=== PATIENT | male | born 2000 | race Caucasian/White ===

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

== ENCOUNTER → 2020-06-05 | Outpatient (REF) | payer OTHER ==
[~2020-06-05] MED LIST: DIPH25CA32 PO; ELIM5CRE2 TOP
== END ==
LOC: M SFHCADAM 13:23
PROVIDERS: ATTEND Family Medicine
DX: R19.7 Diarrhea, unspecified (principal)

== ENCOUNTER → 2020-06-07 | Outpatient (REF) | payer OTHER ==
[2020-06-07 17:15] LABS: BASO # 0.1 10^3/uL (0.0-0.2); EOS # 0.1 10^3/uL (0.0-0.5); EOS % 0.7 % (0.0-3.0); HEMATOCRIT 46.2 % (42.0-52.0); HEMOGLOBIN 15.7 g/dl (13.5-17.5); LYMPH # 2.5 10^3/uL (1.5-5.0); LYMPH % 28.5 % (24.0-44.0); MEAN CORPUSCULAR HEMOGLOBIN 29.7 pg (27.0-33.0); MEAN CORPUSCULAR VOLUME 87.5 fl (80.0-96.0); MONO # 0.5 10^3/uL (0.0-0.8); MONO % 6.2 % (0.0-5.0); NEUTROPHILS # 5.5 10^3/uL (1.5-8.5); NEUTROPHILS % 63.5 % (36.0-66.0); PLATELET COUNT, AUTOMATED 344 10^3/uL (150-450); RED BLOOD COUNT 5.28 10^6/uL (4.30-6.10); WHITE BLOOD COUNT 8.7 10^3/uL (4.0-10.0)
[2020-06-07 17:22] LABS: FREE T4 1.25 NG/DL (0.76-1.46); THYROID STIMULATING HORMONE 0.962 uIU/ML (0.358-3.740)
[2020-06-07 17:22] LABS: ALBUMIN 4.5 GM/DL (3.2-5.2); ALT/SGPT 25 U/L (12-78); BILIRUBIN,TOTAL 0.5 MG/DL (0.2-1.0); BLOOD UREA NITROGEN 10 MG/DL (7-18); CALCIUM LEVEL 10.2 MG/DL (8.5-10.1); CARBON DIOXIDE LEVEL 29 MEQ/L (21-32); CHLORIDE LEVEL 103 MEQ/L (98-107); CREATININE FOR GFR 0.99 MG/DL (0.70-1.30); GLOMERULAR FILTRATION RATE > 60.0 (>60); GLUCOSE, FASTING 125 MG/DL (70-100); POTASSIUM SERUM 4.3 MEQ/L (3.5-5.1); SODIUM LEVEL 139 MEQ/L (136-145); TOTAL PROTEIN 7.6 GM/DL (6.4-8.2)
== END ==
LOC: M SFHCADAM 13:29
PROVIDERS: ATTEND Family Medicine
DX: Z00.00 Encounter for general adult medical examination without abnormal findings (principal)

== ENCOUNTER 2020-09-28 20:41 | Emergency (ER) | payer OTHER ==
[~2020-09-28] VITALS: Ht 175.3 cm; Wt 80.4 kg
[2020-09-28] MEDS ORDERED: KETOROLAC 30 MG/ML 1ML VIAL IV ONE (23:30)
[2020-09-28] MEDS: ALBUTEROL 90 MCG/ACT 8GM HFA INHALER INH SCH (23:52)
[2020-09-29] MEDS: ALBUTEROL 90 MCG/ACT 8GM HFA INHALER INH SCH ×2 (00:06→00:26)
[2020-09-29 00:07] LABS: VENOUS BASE EXCESS -1.9 (-2.0-2.0); VENOUS HCO3 22.1 MEQ/L (23.0-27.0); VENOUS O2 SATURATION 65.2 % (60.0-80.0); VENOUS PARTIAL PRESSURE CO2 36.1 mmHg (38.0-50.0); VENOUS PH 7.405 UNITS (7.330-7.430); VENOUS TOTAL CO2 23.2 MEQ/L (24.0-28.0)
[2020-09-29 00:17] LABS: INR 0.96
[2020-09-29 00:20] LABS: D-DIMER QUANT < 270 ng/ml (<500)
[2020-09-29 00:30] LABS: BASO # 0.1 10^3/uL (0.0-0.2); BASO % 0.6 % (0.0-1.0); EOS % 0.2 % (0.0-3.0); HEMATOCRIT 45.1 % (42.0-52.0); HEMOGLOBIN 15.6 g/dl (13.5-17.5); LYMPH # 2.9 10^3/uL (1.5-5.0); LYMPH % 23.1 % (24.0-44.0); MEAN CORPUSCULAR HEMOGLOBIN 29.5 pg (27.0-33.0); MEAN CORPUSCULAR HGB CONC 34.6 g/dl (32.0-36.5); MEAN CORPUSCULAR VOLUME 85.4 fl (80.0-96.0); MONO # 0.9 10^3/uL (0.0-0.8); MONO % 7.5 % (2.0-8.0); NEUTROPHILS # 8.5 10^3/uL (1.5-8.5); NEUTROPHILS % 68.1 % (36.0-66.0); PLATELET COUNT, AUTOMATED 349 10^3/uL (150-450); RED BLOOD COUNT 5.28 10^6/uL (4.30-6.10); WHITE BLOOD COUNT 12.4 10^3/uL (4.0-10.0)
--- NOTE | 2020-09-29 00:42 | REPVR ---
PROCEDURE INFORMATION: Exam: XR Chest Exam date and time: 09/28/2020 11:57 PM Age: 20 years old Clinical indication: Other: Dyspnea/cough TECHNIQUE: Imaging protocol: XR of the chest. Views: 1 view. COMPARISON: CR Chest, 2 view PA, Lat 01/10/2014 1:01 PM FINDINGS: Lungs: Unremarkable. No consolidation. Pleural spaces: Unremarkable. No pleural effusion. No pneumothorax. Heart/Mediastinum: Unremarkable. No cardiomegaly. Bones/joints: Unremarkable. IMPRESSION: No acute findings. Electronically signed by: Timo Lott On 09/29/2020 00:42:36 AM
[2020-09-29 00:43] LABS: ALBUMIN 4.5 GM/DL (3.2-5.2); ALT/SGPT 23 U/L (12-78); BILIRUBIN,DIRECT 0.2 MG/DL (0.0-0.2); BLOOD UREA NITROGEN 11 MG/DL (7-18); CALCIUM LEVEL 9.6 MG/DL (8.5-10.1); CARBON DIOXIDE LEVEL 24 MEQ/L (21-32); CHLORIDE LEVEL 106 MEQ/L (98-107); CK-MB VALUE MASS < 1.0 NG/ML (<3.6); CPK CREATINE PHOSPHOKINASE 140 U/L (39-308); CREATININE FOR GFR 0.92 MG/DL (0.70-1.30); GLOMERULAR FILTRATION RATE > 60.0 (>60); GLUCOSE, FASTING 80 MG/DL (70-100); MB/CK RELATIVE INDEX 0.71 (< OR =4); POTASSIUM SERUM 3.6 MEQ/L (3.5-5.1); SODIUM LEVEL 142 MEQ/L (136-145); THYROXINE (T4) 12.7 UG/DL (4.5-12.0); TROPONIN I < 0.02 NG/ML (< 0.10)
[2020-09-29] MEDS ORDERED: PROAAER10 INH (01:33)
[2020-09-29] MEDS ORDERED: NAPR-837 PO (01:33)
[2020-09-29] MEDS ORDERED: methylPREDNISolone 125MG 2ML VIAL IV ONE (01:35)
[2020-09-29 01:45] VITALS: BP 147/67
--- NOTE | 2020-09-30 08:45 | ECGEPIP ---
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
== END 2020-09-29 01:46 | disposition home or self-care (01) ==
LOC: M ED 20:41
DX: R07.89 Other chest pain (principal); R06.00 Dyspnea, unspecified; J45.909 Unspecified asthma, uncomplicated; F17.200 Nicotine dependence, unspecified, uncomplicated; Z88.1 Allergy status to other antibiotic agents; Z79.51 Long term (current) use of inhaled steroids
CPT/HCPCS: 71045; 80047; 80048; 80076; 82550; 82553; 82803; 84436; 84443; 85025; 85379; 85610; 93005; 93041; 94640; 94760; 96374; 96375; 99284; J1885; J2930

== ENCOUNTER 2022-05-11 17:52 | Emergency (ER) | payer OTHER ==
[~2022-05-11] VITALS: Ht 175.3 cm; Wt 93.3 kg
[~2022-05-11 17:52] MED LIST changes: +DIPH-435 PO; -DIPH25CA32 PO; +NAPR-837 PO; +PROAAER10 INH
[2022-05-11 19:59] LABS: BASO # 0.1 10^3/uL (0.0-0.2); BASO % 0.7 % (0.0-1.0); EOS # 0.1 10^3/uL (0.0-0.5); EOS % 0.7 % (0.0-3.0); HEMATOCRIT 43.5 % (42.0-52.0); HEMOGLOBIN 14.7 g/dl (13.5-17.5); LYMPH # 2.5 10^3/uL (1.5-5.0); LYMPH % 20.6 % (24.0-44.0); MEAN CORPUSCULAR HEMOGLOBIN 28.9 pg (27.0-33.0); MEAN CORPUSCULAR HGB CONC 33.8 g/dl (32.0-36.5); MEAN CORPUSCULAR VOLUME 85.5 fl (80.0-96.0); MONO % 8.6 % (2.0-8.0); NEUTROPHILS # 8.4 10^3/uL (1.5-8.5); PLATELET COUNT, AUTOMATED 336 10^3/uL (150-450); RED BLOOD COUNT 5.09 10^6/uL (4.30-6.10); WHITE BLOOD COUNT 12.1 10^3/uL (4.0-10.0)
[2022-05-11 20:15] VITALS: BP 130/78
[2022-05-11 20:24] LABS: ALBUMIN 4.3 G/DL (3.2-5.2); BILIRUBIN,DIRECT 0.2 MG/DL (<0.4); BILIRUBIN,TOTAL 0.5 MG/DL (0.3-1.2); TOTAL PROTEIN 7.2 G/DL (5.7-8.2)
[2022-05-11 20:26] LABS: FREE T4 1.4 NG/DL (0.89-1.76); THYROID STIMULATING HORMONE 0.829 uIU/ML (0.55-4.78)
== END 2022-05-11 20:57 | disposition home or self-care (01) ==
LOC: M ED 18:23
DX: R20.2 Paresthesia of skin (principal); I10 Essential (primary) hypertension; D72.829 Elevated white blood cell count, unspecified; I48.91 Unspecified atrial fibrillation; J45.909 Unspecified asthma, uncomplicated; G43.909 Migraine, unspecified, not intractable, without status migrainosus; F17.200 Nicotine dependence, unspecified, uncomplicated; F12.10 Cannabis abuse, uncomplicated; F10.10 Alcohol abuse, uncomplicated; Z88.0 Allergy status to penicillin; Z79.51 Long term (current) use of inhaled steroids; Z79.899 Other long term (current) drug therapy

== ENCOUNTER → 2022-05-21 | Outpatient (REF) | payer OTHER ==
[2022-05-21 13:41] LABS: BASO # 0.1 10^3/uL (0.0-0.2); BASO % 0.8 % (0.0-1.0); EOS # 0.1 10^3/uL (0.0-0.5); EOS % 1.3 % (0.0-3.0); HEMATOCRIT 48.2 % (42.0-52.0); HEMOGLOBIN 15.8 g/dl (13.5-17.5); LYMPH # 2.8 10^3/uL (1.5-5.0); LYMPH % 28.5 % (24.0-44.0); MEAN CORPUSCULAR HEMOGLOBIN 28.7 pg (27.0-33.0); MEAN CORPUSCULAR HGB CONC 32.8 g/dl (32.0-36.5); MEAN CORPUSCULAR VOLUME 87.5 fl (80.0-96.0); MONO % 9.7 % (2.0-8.0); NEUTROPHILS # 5.8 10^3/uL (1.5-8.5); NEUTROPHILS % 59.4 % (36.0-66.0); PLATELET COUNT, AUTOMATED 368 10^3/uL (150-450); RED BLOOD COUNT 5.51 10^6/uL (4.30-6.10); WHITE BLOOD COUNT 9.8 10^3/uL (4.0-10.0)
== END ==
LOC: M SFHCADAM 09:51
PROVIDERS: ATTEND Family Medicine
DX: D72.829 Elevated white blood cell count, unspecified (principal)

== ENCOUNTER → 2022-09-17 | Outpatient (CLI) | payer OTHER ==
[2022-09-17 18:22] LABS: CPK CREATINE PHOSPHOKINASE 118 U/L (46-171)
[2022-09-17 18:23] LABS: ALBUMIN 4.2 G/DL (3.2-5.2); ALKALINE PHOSPHATASE 61 U/L (46-116); ALT/SGPT 32 U/L (7.0-40); AST/SGOT 18 U/L (<34); BILIRUBIN,TOTAL 0.6 MG/DL (0.3-1.2); BLOOD UREA NITROGEN 14 MG/DL (9-23); CALCIUM LEVEL 9.6 MG/DL (8.5-10.1); CARBON DIOXIDE LEVEL 26 MMOL/L (20-31); CHLORIDE LEVEL 103 MMOL/L (98-107); CREATININE FOR GFR 0.77 MG/DL (0.70-1.30); GLOMERULAR FILTRATION RATE > 60.0 (>60); GLUCOSE, FASTING 92 MG/DL (60-100); POTASSIUM SERUM 4.4 MMOL/L (3.5-5.1); SODIUM LEVEL 137 MMOL/L (136-145); THYROID STIMULATING HORMONE 1.114 uIU/ML (0.55-4.78); TOTAL PROTEIN 7.1 G/DL (5.7-8.2)
[2022-09-17 18:24] LABS: FOLATE 21.9 NG/ML (>5.4)
[2022-09-17 18:25] LABS: VITAMIN B12 LEVEL 455 PG/ML (211-911)
[2022-09-19 13:12] LABS: ANTINUCLEAR ANTIBODIES DIRECT Negative (Negative)
== END ==
LOC: M LABDRWAD 11:56
PROVIDERS: ATTEND Psychiatry & Neurology Neurology
DX: R20.2 Paresthesia of skin (principal); I10 Essential (primary) hypertension; D72.829 Elevated white blood cell count, unspecified; I48.91 Unspecified atrial fibrillation; J45.909 Unspecified asthma, uncomplicated; G43.909 Migraine, unspecified, not intractable, without status migrainosus; F17.200 Nicotine dependence, unspecified, uncomplicated

== ENCOUNTER → 2022-09-18 | Outpatient (REF) | payer OTHER ==
[2022-09-18 14:25] LABS: BASO # 0.1 10^3/uL (0.0-0.2); BASO % 0.9 % (0.0-1.0); EOS # 0.3 10^3/uL (0.0-0.5); HEMATOCRIT 42.9 % (42.0-52.0); LYMPH % 33.3 % (24.0-44.0); MEAN CORPUSCULAR HEMOGLOBIN 28.3 pg (27.0-33.0); MEAN CORPUSCULAR HGB CONC 32.6 g/dl (32.0-36.5); MEAN CORPUSCULAR VOLUME 86.7 fl (80.0-96.0); MONO # 0.7 10^3/uL (0.0-0.8); MONO % 7.4 % (2.0-8.0); NEUTROPHILS # 4.9 10^3/uL (1.5-8.5); NEUTROPHILS % 54.3 % (36.0-66.0); PLATELET COUNT, AUTOMATED 337 10^3/uL (150-450); RED BLOOD COUNT 4.95 10^6/uL (4.30-6.10); WHITE BLOOD COUNT 9.1 10^3/uL (4.0-10.0)
[2022-09-18 15:28] LABS: ERYTHROCYTE SEDIMENTATION RATE 9 mm/hr (0-15)
== END ==
LOC: M LABDRWAD 13:00
PROVIDERS: ATTEND Psychiatry & Neurology Neurology
DX: R53.1 Weakness (principal); M54.2 Cervicalgia

== ENCOUNTER → 2025-03-10 | Outpatient (CLI) | payer OTHER ==
[~2025-03-10] MED LIST changes: -ELIM5CRE2 TOP; +PERM60CR8 TOP
== END ==
LOC: M LAB 16:35
PROVIDERS: ATTEND Family Medicine Addiction Medicine
DX: M25.511 Pain in right shoulder (principal)